=== PATIENT | male | born 1975 | race Caucasian/White ===

== ENCOUNTER 2016-07-26 09:44 | Emergency (ER) | payer OTHER ==
--- NOTE | 2016-07-26 11:09 | UC ---
Eye Complaint HPI - HPI Summary HPI Summary: complaint of getting dust in his eye right this morning right eye- flushed eye for approx 30 minutes without relif while waiting to be seen something came out of his eye denies itching, pain and tearing at this time denies vision changes - History of Current Complaint Chief Complaint: UCEye Stated Complaint: FB IN EYE Time Seen by Provider: 07/26/16 11:02 Location of Injury: Conjunctiva Character: Foreign Body Sensation Aggravating Factor(s): Nothing Alleviating Factor(s): Nothing - Allergies/Home Medications Allergies/Adverse Reactions: Allergies Allergy/AdvReac Type Severity Reaction Status Date / Time Cephalexin [From Keflex] AdvReac intense Verified 07/26/16 10:44 nausea PMH/Surg Hx/FS Hx/Imm Hx Previously Healthy: Yes - Surgical History Surgical History: None - Family History Known Family History: Positive: None Negative: Cardiac Disease, Hypertension, Diabetes - Social History Occupation: Employed Full-time Alcohol Use: Rare Substance Use Type: None Smoking Status (MU): Never Smoked Tobacco - Immunization History Most Recent Tetanus Shot: 03/23/16 Review of Systems Constitutional: Negative Skin: Negative Eyes: Other - right eye foregin body sensation ENT: Negative Respiratory: Negative Cardiovascular: Negative Gastrointestinal: Negative Genitourinary: Negative Motor: Negative Neurovascular: Negative Musculoskeletal: Negative Neurological: Negative Psychological: Negative All Other Systems Reviewed And Are Negative: Yes Physical Exam Triage Information Reviewed: Yes Appearance: No Pain Distress, Well-Nourished Vital Signs: Initial Vital Signs Temp 98.5 F 07/26/16 10:40 Pulse 87 07/26/16 10:40 Resp 16 07/26/16 10:40 BP 159/100 07/26/16 10:40 Pulse Ox 99 07/26/16 10:40 Eye Exam: Normal Eyes: Positive: Conjunctiva Clear, Other: - right eye observed with flourisceine - no foregn objects, scratches or abrasions noted ENT: Positive: Normal ENT inspection Neck: Positive: No Lymphadenopathy Respiratory: Positive: Lungs clear, Normal breath sounds, No respiratory distress Cardiovascular: Positive: RRR, No Murmur, Pulses Normal Abdomen Description: Positive: Nontender, Soft Bowel Sounds: Positive: Present Musculoskeletal: Positive: No Edema Neurological: Positive: Alert Psychological Exam: Normal Skin Exam: Normal Eye Complaint Course/Dx - Course Course Of Treatment: exam completed. no foriegn objects scratches or abrasions. no vision abnormalites. will rx for antibiotic drops for use if symptoms of conjunctivitis occur- pt states understanding - Differential Dx/Diagnosis Differential Diagnosis/HQI/PQRI: Foreign Body Provider Diagnoses: foreign body in right eye, eklevated blood pressure Discharge - Discharge Plan Condition: Stable Disposition: HOME Prescriptions: Tobramycin (Ophth) [Tobrex] 0.3 % OP Q4HR #1 yane Patient Education Materials: Eye Foreign Body (ED) Referrals: Greer Ba MD [Primary Care Provider] - Additional Instructions: your blood pressure is elevated please call your primary care provider for followup no foreign object or abrasion seen in your right eye if your eye starts to turn itchy and red start eyedrops as directed Please review your discharge instructions. If your symptoms do not improve please call your primary care provider or return to urgent care.
[2016-07-26] MEDS ORDERED: Fluorescein Sodium TOPICAL* 1 MG TEST ONE (11:14)
[2016-07-26] MEDS ORDERED: BSS OPTH.SOL* BTL ONE (11:14)
[2016-07-26] MEDS ORDERED: Proparacaine 0.5% OPHTH.SOL* 15 ML BTL ONE (11:14)
[2016-07-26 11:58] VITALS: BP 173/110
== END 2016-07-26 11:40 | disposition home or self-care (01) ==
LOC: UCEAST 09:44
DX: T15.91XA Foreign body on external eye, part unspecified, right eye, initial encounter (principal); I10 Essential (primary) hypertension; Z88.1 Allergy status to other antibiotic agents; X58.XXXA Exposure to other specified factors, initial encounter
CPT/HCPCS: 99212; A9270-GY; G0463

== ENCOUNTER 2018-10-12 13:33 | Emergency (ER) | payer OTHER ==
--- OUTSIDE RECORDS SUMMARY | 2018-10-12 14:15 | XMS REPORT | Continuity of Care Document ---
:1975 External Reference #:[id number] Author Name Greer Ba M.D. 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 [place] [address] PayID: [id number] Advance Directives Description No Information Available Problems Date Description Provider Status Onset: 07/26/2017 Other idiopathic peripheral Greer Ba M.D. Active autonomic neuropathy Onset: 07/26/2017 Essential hypertension Greer Ba M.D. Active Onset: 05/04/2012 Mixed hyperlipidemia Greer Ba M.D. Active Family History Date Family Member(s) Observation Comments General MGF- [place] mid 40's. smoker.M uncle - bypass surgery x2.no Strokes.MGM - lung CA, heavy smoker.PGF - prostate CANo colon or breast ca. Father HTN. HIgh cholesterol. Mother healthy. philip knee replacements. Number of Children 2 step children. Fraternal girl Twins. both healthy. First Daughter healthy. Number of Siblings 1 older sister, 1 younger sister, 1 younger brother. healthy. Social History Type Date Description Comments Sex Unknown Education Highest level of education completed is a bachelor's degree, [employer]. Marital Status Patient is Living Situation Lives with spouse and 3 kids, 12 and 12 - two girls fraternal twins- step daughters. 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 Tobacco Use Start: Unknown Never Smoked Cigarettes ETOH Use Rare -3 glasses a year. Tobacco Use Start: Unknown Patient has never smoked Smoking Status Reviewed: 07/26/17 Patient has never smoked Exercise Type/Frequency Exercises regularly, Current walking - nightly 1 hour, and hiking. during warmer weather. Seat Belt/Car Seat Always uses a seat belt Contraceptive Methods Past methods of control used include vasectomy Allergies, Adverse Reactions, Alerts Date Description Reaction Status Severity Comments 01/05/2010 Keflex Active 01/05/2010 Black Fly/Horse Fly allergic reaction Active Medications Medication Date Status Form Strength Qnty SIG Indications Ordering Provider Hydrochlorothiazi 11/01 Active Tablets 25mg 90tab 1 by I10 Alexandra s mouth [place], every day Afnp-C Lisinopril 09/20 Active Tablets 20mg 30tab 1 by I10 Greer LMadi s mouth Jesenia, every day M.D. Blood Pressure 08/30 Active 1unit take Sarah Luzmaria Cuff s blood Garvin, DRY ROASTER pressure as needed Alprazolam 05/10 Active Tablets 0.25mg 20tab 1 by F41.0 Greer L. s mouth Jesenia, twice a M.D. day as needed Multivitamins Active Chewtabs 1 po qd Unknown Vitamin C Active Capsules 500mg 1 po qd Lisinopril 07/26 Hx Tablets 10mg 30tab 1 by I10 Greer L. s mouth Jesenia, - every day M.D. 09/20 Doxycycline 03/01 Hx Capsules 100mg 28cap one tab R21 Sarah Luzmaria Hyclate s twice a Garvin, DRY ROASTER - day for 07/26 Lisinopril 12/20 Hx Tablets 5mg 30tab 1 by I10 Greer L. s mouth Jesenia, - every day M.D. 07/26 Clindamycin HCL 11/26 Hx Capsules 300mg 42cap 1 po tid 034.0 Susan /2014 s x 14 days Goldy, - BATCH OPERATOR 04/22 Clindamycin HCL 10/23 Hx Capsules 300mg 30cap 1 po tid 034.0 s x 10 days DWAYNE Lewis - 11/22 Amoxicillin 10/10 Hx Tablets 875mg 20tab 1 po bid 034.0 s x 10 Joshua, DRY ROASTER - days 10/20 Physical Therapy 05/04 Hx evaluate 356.8 Greer L. /2011 and treat Bee Ba M.D. 07/12 toe numbness Zithromax Z-Bj 03/03 Hx Tablets 250mg 1Pack as Jaleel J. /2005 directed Bee Rebolledo M.D. 03/23 Keflex 02/28 Hx Tablets 500 14tab one po Loly R s bid seven Maverick, - days. BATCH OPERATOR-C 03/23 Cortisporin Otic 02/28 Hx Suspension 5mg;05897 15ml tweo Loly U;10mg/ML drops Maverick, - left ear BATCH OPERATOR-C 03/23 tid daily /2005 one week as directed Clarinex 02/11 Hx Tablets 5mg 30tab 1 PO qd [facility] 11/18 Of Elidel 02/11 Hx Cream 1% 15gm apply sparingly Silvia, - bid prn BATCH OPERATOR 02/28 Keflex 05/05 Hx 500 14uni 1 bid Jaleel J. /2002 Bee De La Cruz M.D. 05/12 Clarinex 01/14 Hx 5mg 30uni 1 qd prn venkat Vega - BATCH OPERATOR 02/11 Claritin 11/09 Hx 10mg 30uni 1 qd Miya /2000 venkat Vega - BATCH OPERATOR 01/14 Probiotic Daily 00 Hx 1 by Unknown /0000 mouth - every day 09/20 Immunizations CPT Code Status Date Vaccine Lot # [id number] Given 07/26/2017 Influenza vac quadrivalent preservative free 3yrs [id number] and up [id number] Given 06/01/2016 Influenza Vac, Quadrivalent, Slit Virus, Im [id number] Given 04/22/2015 Tdap Tetanus, W Pertussis [id number] Given 07/03/2013 DO Not Use Split Influenza Virus Vaccine Vital Signs Date Vital Result Comment 09/19/2018 2:15pm BP Systolic 144 mmHg BP Diastolic 90 mmHg Heart Rate 72 /min Body Temperature 97.1 F Respiratory Rate 18 /min Height 75 inches 6'3" Weight 201.00 lb BMI (Body Mass Index) 25.1 kg/m2 11/01/2017 2:54pm BP Systolic 174 mmHg Ra BP Diastolic 110 mmHg Ra BP Systolic Recheck 162 mmHg LA BP Diastolic Recheck 108 mmHg LA Heart Rate 64 /min Body Temperature 97.6 F Respiratory Rate 16 /min Height 75 inches 6'3" Weight 203.38 lb BMI (Body Mass Index) 25.4 kg/m2 09/20/2017 2:51pm BP Systolic 154 mmHg BP Diastolic 94 mmHg Heart Rate 60 /min Body Temperature 97.9 F Respiratory Rate 16 /min Height 75 inches 6'3" Weight 200.25 lb BMI (Body Mass Index) 25.0 kg/m2 07/26/2017 9:08am BP Systolic 146 mmHg BP Diastolic 90 mmHg Heart Rate 62 /min Body Temperature 98.2 F Respiratory Rate 16 /min Height 75 inches 6'3" Weight 199.56 lb BMI (Body Mass Index) 24.9 kg/m2 Right Visual Acuity Distance 20/25 Left Visual Acuity Distance 20/20 03/01/2017 10:04am BP Systolic 150 mmHg BP Diastolic 98 mmHg Heart Rate 76 /min Body Temperature 97.9 F Height 75 inches 6'3" Weight 199.00 lb BMI (Body Mass Index) 24.9 kg/m2 Right Visual Acuity Distance 20/20 Left Visual Acuity Distance 20/25 02/01/2017 11:41am BP Systolic 130 mmHg BP Diastolic 80 mmHg Heart Rate 60 /min Body Temperature 97.9 F Respiratory Rate 18 /min Height 75 inches 6'3" Weight 202.00 lb BMI (Body Mass Index) 25.2 kg/m2 12/20/2016 11:34am BP Systolic 150 mmHg BP Diastolic 100 mmHg Heart Rate 72 /min Body Temperature 97.8 F Respiratory Rate 18 /min Height 75 inches 6'3" Weight 205.00 lb BMI (Body Mass Index) 25.6 kg/m2 10/26/2016 8:54am BP Systolic 130 mmHg BP Diastolic 90 mmHg Heart Rate 80 /min Body Temperature 98.2 F Respiratory Rate 18 /min Height 75 inches 6'3" Weight 219.00 lb BMI (Body Mass Index) 27.4 kg/m2 07/20/2016 8:57am BP Systolic 144 mmHg BP Diastolic 92 mmHg Heart Rate 64 /min Body Temperature 97.0 F Height 75 inches 6'3" Weight 215.00 lb BMI (Body Mass Index) 26.9 kg/m2 06/01/2016 2:54pm BP Systolic 156 mmHg BP Diastolic 88 mmHg Heart Rate 66 /min Body Temperature 98.4 F Respiratory Rate 16 /min Weight 214.38 lb 05/10/2016 8:56am BP Systolic 110 mmHg BP Diastolic 80 mmHg Heart Rate 76 /min Body Temperature 98.0 F Respiratory Rate 18 /min Weight 212.00 lb 02/24/2016 1:49pm BP Systolic 134 mmHg BP Diastolic 80 mmHg Heart Rate 80 /min Body Temperature 98.1 F Respiratory Rate 16 /min Height 75.5 inches 6'3.50" Weight 207.00 lb BMI (Body Mass Index) 25.5 kg/m2 04/22/2015 1:47pm BP Systolic 122 mmHg BP Diastolic 70 mmHg Heart Rate 80 /min Body Temperature 97.9 F Respiratory Rate 16 /min Height 75.5 inches 6'3.50" Weight 210.00 lb BMI (Body Mass Index) 25.9 kg/m2 11/26/2013 12:55pm BP Systolic 134 mmHg BP Diastolic 90 mmHg Heart Rate 66 /min Body Temperature 97.4 F Respiratory Rate 16 /min Height 75.5 inches 6'3.50" Weight 207.00 lb BMI (Body Mass Index) 25.5 kg/m2 10/23/2013 9:28am BP Systolic 120 mmHg BP Diastolic 70 mmHg Heart Rate 68 /min Body Temperature 98.2 F Respiratory Rate 14 /min Height 75.5 inches 6'3.50" Weight 205.00 lb BMI (Body Mass Index) 25.3 kg/m2 10/10/2013 9:51am BP Systolic 120 mmHg BP Diastolic 82 mmHg Heart Rate 96 /min Body Temperature 99.6 F Respiratory Rate 20 /min Height 75.5 inches 6'3.50" Weight 206.50 lb BMI (Body Mass Index) 25.5 kg/m2 09/05/2013 11:07am BP Systolic 124 mmHg BP Diastolic 78 mmHg Heart Rate 80 /min Body Temperature 97.1 F Respiratory Rate 16 /min Height 75.5 inches 6'3.50" Weight 208.00 lb BMI (Body Mass Index) 25.7 kg/m2 07/12/2013 1:54pm BP Systolic 122 mmHg BP Diastolic 80 mmHg Heart Rate 76 /min Body Temperature 97.8 F Height 75.5 inches 6'3.50" Weight 208.38 lb BMI (Body Mass Index) 25.7 kg/m2 Right Visual Acuity Distance 20/25 Left Visual Acuity Distance 20/100 05/04/2012 1:50pm BP Systolic 140 mmHg BP Diastolic 100 mmHg Heart Rate 72 /min Body Temperature 98.4 F Height 75.6 inches 6'3.60" Weight 209.00 lb BMI (Body Mass Index) 25.7 kg/m2 04/13/2012 3:30pm BP Systolic 116 mmHg BP Diastolic 80 mmHg Heart Rate 84 /min Body Temperature 98.4 F Height 75.6 inches 6'3.60" Weight 209.00 lb BMI (Body Mass Index) 25.7 kg/m2 03/05/2012 10:52am BP Systolic 122 mmHg BP Diastolic 82 mmHg Heart Rate 68 /min Body Temperature 97.3 F Height 75.6 inches 6'3.60" Weight 205.00 lb BMI (Body Mass Index) 25.2 kg/m2 01/05/2010 1:11pm BP Systolic 120 mmHg BP Diastolic 76 mmHg Heart Rate 72 /min Height 75.6 inches 6'3.60" Weight 193.00 lb BMI (Body Mass Index) 23.7 kg/m2 11/18/2009 3:20pm BP Systolic 120 mmHg BP Diastolic 80 mmHg Heart Rate 76 /min Height 75.6 inches 6'3.60" Weight 195.00 lb BMI (Body Mass Index) 24.0 kg/m2 10/18/2006 11:36am BP Systolic 100 mmHg BP Diastolic 60 mmHg Body Temperature 97.9 F Height 75.6 inches 6'3.60" Weight 174.00 lb BMI (Body Mass Index) 21.4 kg/m2 07/12/2006 7:44pm BP Systolic 126 mmHg BP Diastolic 82 mmHg Heart Rate 74 /min Body Temperature 99.6 F Respiratory Rate 15 /min Height 75.6 inches 6'3.60" 03/23/2006 9:41am BP Systolic 110 mmHg BP Diastolic 60 mmHg Body Temperature 97.9 F Height 75.6 inches 6'3.60" Weight 174.00 lb BMI (Body Mass Index) 21.4 kg/m2 02/28/2006 1:36pm BP Systolic 110 mmHg BP Diastolic 66 mmHg Heart Rate 66 /min Body Temperature 98.6 F Weight 173.00 lb 02/11/2005 4:01pm BP Systolic 110 mmHg BP Diastolic 80 mmHg Body Temperature 98.0 F Weight 178.00 lb 05/05/2003 11:10am Body Temperature 96.0 F 11/09/2000 9:04am BP Systolic 110 mmHg BP Diastolic 72 mmHg Body Temperature 97.2 F Weight 169.00 lb Results Test Date Facility Test Result H/L Range Note Laboratory test [facility] PSA Diagnostic 0.747 ng/mL 0-4.0 1 finding 8 Laboratory test [facility] Hemoglobin A1c 5.2 % 4.1-5.7 finding 8 (607)- - ([facility]) Laboratory test Hong Sabrina (a) TSH 1.71 mIU/L 0.50-6.00 finding 8 Comprehensive Hong Sabrina ([facility]) Sodium 139 mEq/L 134-149 Metabolic Prof 7 Potassium 4.0 mEq/L 3.6-5.5 Chloride 106 mEq/L 94-112 Carbon Dioxide 28 mEq/L 21-32 Glucose 104 mg/dL 70-105 BUN 14 mg/dL 6-26 Creatinine 1.0 mg/dL 0.6-1.4 BUN/Creat Ratio 14.0 CALC 8.0-36.0 Calcium 9.3 mg/dL 8.6-10.2 Total Protein 6.6 g/dL 6.4-8.3 Albumin 4.1 g/dL 3.8-5.5 Globulin 2.5 g/dL 2.0-4.8 A/G Ratio 1.6 CALC 0.6-2.3 Alk. Phosphatase 62 U/L 22-95 Alt (SGPT) 31 U/L 7-35 Ast (Sgot) 36 U/L High 5-34 2 Total Bilirubin 0.5 mg/dL 0.2-1.3 GFR Non- >60 ml/min/1.73m^ >=60 GFR >60 ml/min/1.73m^ >=60 Lipid Profile 07/14/2017 Hong Sabrina ([facility]) Cholesterol 201 mg/dL High 120-200 Triglycerides 107 mg/dL 30-200 HDL Cholesterol 46 mg/dL 30-70 LDL (Calculated) 134 CALC High 0-129 VLDL Cholesterol 21 mg/dL 0-50 HDL Risk Factor 4.4 CALC 0.0-4.4 Complete Blood Count 07/14/2017 Pitts Flora ([facility]) WBC 6.1 x10^3/UL 3.6-9.6 RBC 4.63 x10^6/UL 3.90-5.70 HGB 14.1 g/dL 12.1-17.2 HCT 42 % 36-50 MCV 90.0 fL 82.2-97.4 MCH 30.4 pg 27.6-33.3 MCHC 33.6 g/dL 33.0-35.5 RDW 14.0 % High 11.6-13.7 PLT 239 x10^3/UL 150-400 MPV 7.7 fL 7.4-10.4 Gran # 4.0 x10^3/UL 1.5-7.2 Lymph# 1.8 x10^3/UL 0.7-4.9 [place]# 0.3 x10^3/UL 0.1-0.9 Gran % 63.3 % 42.2-75.2 Lymph % 31.2 % 20.5-51.1 [place]% 5.5 % 1.7-9.3 Laboratory test finding 06/01/[address] [facility] Lyme Disease Serology Positive Negative 3 Lyme Western Blot 06/01/[address] [facility] Lyme Disease IgG Ab WB Negative Negative Lyme Disease IgG Bands Present p93, p58, kDa Lyme Disease IgM Ab WB Negative Negative Lyme Disease IgM Bands Present p41, kDa Lyme Disease Interpretation See Comment 4 Basic Metabolic Profile 01/03/2017 Hong Sabrina ([facility]) Sodium 137 mEq/L 134-149 Potassium 3.8 mEq/L 3.6-5.5 Chloride 98 mEq/L 94-112 Carbon Dioxide 31 mEq/L 21-32 Glucose 92 mg/dL 70-105 BUN 12 mg/dL 6-26 Creatinine 0.9 mg/dL 0.6-1.4 BUN/Creat Ratio 13.3 CALC 8.0-36.0 Calcium 9.5 mg/dL 8.6-10.2 GFR Non- >60 ml/min/1.73m^ >=60 GFR >60 ml/min/1.73m^ >=60 Lyme Western Blot 12/05/[address] [facility] Lyme Disease IgG Ab WB Negative N Negative Lyme Disease IgG Bands Present p93, kDa N Lyme Disease IgM Ab WB Negative N Negative Lyme Disease IgM Bands Present No bands detecte <SEE NOTE> kDa N 5 Lyme Disease Interpretation See Comment N 6 Connective Tissue Panel 12/05/2016 [facility] Anti-Nuclear Antibody 0.4 U N 7 Cyclic Citrullinated Peptide 16.9 U N 8 Interpretation See Comment N 9 Laboratory test finding 12/05/[address] [facility] Lyme Disease Serology Positive N Negative 10 Protein Electrophoresis 12/05/[address] [facility] Total Protein(Pep) 7.3 g/dL N 6.3 - 7.9 Albumin 3.7 g/dL N 3.4-4.7 Alpha-1 Globulin 0.2 g/dL N 0.1-0.3 Alpha-2 Globulin 0.9 g/dL N 0.6-1.0 Beta Globulin 1.4 g/dL Abnormal 0.7-1.2 Gamma Globulin 1.1 g/dL N 0.6-1.6 Albumin/Globulin Ratio 1.01 N Impression See Comment N 11 Laboratory test finding 12/05/[address] [facility] C Reactive Protein 4.27 mg/L N < 5.00 12 Anti Ssa/Ro <0.2 U N 13 Anti SSB LA <0.2 U N 14 Lipid Profile 10/17/2016 Hong Bennett ([facility]) Cholesterol 288 mg/dL High 120-200 Triglycerides 445 mg/dL High 30-200 HDL Cholesterol 45 mg/dL 30-70 LDL (Calculated) 154 CALC High 0-129 VLDL Cholesterol 89 mg/dL High 0-50 HDL Risk Factor 6.4 CALC High 0.0-4.4 Laboratory test 10/17/2016 Hong Bennett ([facility]) Vitamin B-12 429 pg/mL 230-1050 finding Glucose, Serum 115 mg/dL High 70-105 15 LDL, Direct 144 mg/dL High 0-130 Comprehensive Metabolic 07/19/2016 Hong Bennett (a) Sodium 144 mEq/L 134-149 Prof Potassium 4.5 mEq/L 3.6-5.5 Chloride 103 mEq/L 94-112 Carbon Dioxide 25 mEq/L 21-32 Glucose 103 mg/dL 70-105 BUN 9 mg/dL 6-26 Creatinine 0.9 mg/dL 0.6-1.4 BUN/Creat Ratio 10.0 CALC 8.0-36.0 Calcium 10.2 mg/dL 8.6-10.2 Total Protein 7.3 g/dL 6.4-8.3 Albumin 4.5 g/dL 3.8-5.5 Globulin 2.8 g/dL 2.0-4.8 A/G Ratio 1.6 CALC 0.6-2.3 Alk. Phosphatase 68 U/L 22-95 Alt (SGPT) 28 U/L 7-35 Ast (Sgot) 32 U/L 5-34 Total Bilirubin 0.5 mg/dL 0.2-1.3 GFR Non- >60 ml/min/1.73m^ >=60 GFR >60 ml/min/1.73m^ >=60 Lipid Profile 07/19/2016 Hong Bennett ([facility]) Cholesterol 290 mg/dL High 120-200 Triglycerides 527 mg/dL High 30-200 HDL Cholesterol 46 mg/dL 30-70 LDL (Calculated) 139 CALC High 0-129 16 VLDL Cholesterol 105 mg/dL High 0-50 HDL Risk Factor 6.3 CALC High 0.0-4.4 Complete Blood Count 07/19/2016 Hong Bennett ([facility]) WBC 6.5 x10^3/UL 3.6-9.6 RBC 4.86 x10^6/UL 3.90-5.70 HGB 14.9 g/dL 12.1-17.2 HCT 44 % 36-50 MCV 91.0 fL 82.2-97.4 MCH 30.7 pg 27.6-33.3 MCHC 33.8 g/dL 33.0-35.5 RDW 13.7 % 11.6-13.7 PLT 279 x10^3/UL 150-400 MPV 6.7 fL Low 7.4-10.4 Gran # 3.3 x10^3/UL 1.5-7.2 Lymph# 2.7 x10^3/UL 0.7-4.9 [place]# 0.5 x10^3/UL 0.1-0.9 Gran % 49.8 % 42.2-75.2 Lymph % 41.4 % 20.5-51.1 [place]% 8.8 % 1.7-9.3 Laboratory test 07/19/2016 Hong Bennett (a) LDL, Direct 171 mg/dL High 0-130 finding Comprehensive 06/01/2016 [facility] Sabrina (a) Sodium 141 mEq/L 134-149 Metabolic Prof Potassium 4.2 mEq/L 3.6-5.5 Chloride 99 mEq/L 94-112 Carbon Dioxide 25 mEq/L 21-32 Glucose 88 mg/dL 70-105 BUN 11 mg/dL 6-26 Creatinine 0.8 mg/dL 0.6-1.4 BUN/Creat Ratio 13.8 CALC 8.0-36.0 Calcium 9.5 mg/dL 8.6-10.2 Total Protein 7.4 g/dL 6.4-8.3 Albumin 4.3 g/dL 3.8-5.5 Globulin 3.1 g/dL 2.0-4.8 A/G Ratio 1.4 CALC 0.6-2.3 Alk. Phosphatase 73 U/L 22-95 Alt (SGPT) 26 U/L 7-35 Ast (Sgot) 30 U/L 5-34 Total Bilirubin 0.3 mg/dL 0.2-1.3 GFR Non- >60 ml/min/1.73m^ >=60 GFR >60 ml/min/1.73m^ >=60 Laboratory test 06/01/2016 Hong Bennett (a) TSH 4.04 mIU/L 0.50- 6.00 finding Laboratory test 06/01/2016 [facility] Sabrina (a) Vitamin B-12 230 pg/mL 230-1050 finding Folate Level >20.00 ng/mL High 3.00-16.00 Complete Blood Count 06/01/2016 Hong Sabrina (a) WBC 8.1 x10^3/UL 3.6-9.6 RBC 5.06 x10^6/UL 3.90-5.70 HGB 15.2 g/dL 12.1-17.2 HCT 46 % 36-50 MCV 91.0 fL 82.2-97.4 MCH 30.1 pg 27.6-33.3 MCHC 33.0 g/dL 33.0-35.5 RDW 14.3 % High 11.6-13.7 PLT 266 x10^3/UL 150-400 MPV 6.7 fL Low 7.4-10.4 Gran # 4.0 x10^3/UL 1.5-7.2 Lymph# 3.6 x10^3/UL 0.7-4.9 [place]# 0.5 x10^3/UL 0.1-0.9 Gran % 49.2 % 42.2-75.2 Lymph % 44.5 % 20.5-51.1 [place]% 6.2 % 1.7-9.3 Laboratory test 05/08/[address] [facility] PSA Screening 0.759 ng/mL N 0-4.0 17 finding Laboratory test 10/23/2013 [facility] Quickstrep POS # Negative finding (607)- - Laboratory test 10/10/2013 [facility] Quickstrep POS # Negative finding (607)- - CBC Electronic 07/03/2013 [facility] WBC 6.3 3.6-9.6 (a) (607)- - RBC 5.12 3.90-5.70 Hemoglobin (Fma/CMC/CTX) 15.4 g/dL 12.1 - 17.2 Hematocrit (a/CMC/CTX) 47.0 % 36.1 - 50.3 Platelets 263 10^3/ul 150-400 Lymph% 38.8 20.5-51.1 Mixed% 8.1 Neutrophils % 53.6 Mean Corpuscular Vol 92 82.2-97.4 Mean Corpuscular Hemoglobin 30.1 27.6-33.3 Mean Corpuscular Hemo Concen 32.7 32.0-36.0 RDW 12.6 11.6-13.7 Mean Platelet Volume 6.7 6.5-11.0 Laboratory test 07/03/2013 [facility]rina (a) LDL (Direct) 141 mg/dL High 0-130 finding Lipid Profile 07/03/2013 Hong Sabrina (a) Cholesterol 245 mg/dL High 120-200 HDL 37 mg/dL 30-70 Triglycerides 312 mg/dL High 30-200 HDL Risk Factor 6.7 CALC High 0.0-4.4 LDL (Calculated) 146 CALC High 0-129 VLDL (Calculated) 62 mg/dL High 0-50 Comprehensive Metabolic 07/03/2013 Hong Bennett ([facility]) Albumin 4.5 g/dL 3.8-5.5 Prof Alk. Phos. 76 U/L 22-95 Alt (SGPT) 24 U/L 10-40 Ast (Sgot) 30 U/L 5-34 BUN 14 mg/dL 6-26 Calcium 9.6 mg/dL 8.6-10.2 Chloride 97 mEq/L 94-112 Creatinine 0.9 mg/dL 0.6-1.4 Carbon Dioxide 27 mEq/L 21-32 Glucose 100 mg/dL 70-105 Sodium 137 mEq/L 134-149 Total Bilirubin 0.5 mg/dL 0.2-1.3 Total Protein 7.4 g/dL 6.3-8.1 Potassium 4.4 mEq/L 3.6-5.5 Globulin 2.9 g/dL 2.0-4.8 A/G Ratio 1.6 Calc 0.6-2.3 BUN/Creat Ratio 14.4 Calc 8.0-36.0 Laboratory test finding 04/19/2012 [facility]rina ([facility]) B12 285 pg/mL 230-1050 18 Folate >22.00 ng/mL High 3.00-16.00 Laboratory test 04/19/2012 [facility] Hemoglobin A1c 5.8 % High 4.1- 5.7 finding (607)- - (Fma/CMC,CX) CBC Electronic 04/19/2012 [facility] WBC 7.4 3.6-9.6 (Fma) (607)- - RBC 5.38 3.90-5.70 Hemoglobin (Fma/CMC/CTX) 16.1 g/dL 12.1 - 17.2 Hematocrit (Fma/CMC/CTX) 50.0 % 36.1 - 50.3 Platelets 277 10^3/ul 150-400 Lymph% 38.3 20.5-51.1 Mixed% 7.4 Neutrophils % 54.3 Mean Corpuscular Vol 93 82.2-97.4 Mean Corpuscular Hemoglobin 29.9 27.6-33.3 Mean Corpuscular Hemo Concen 32.2 32.0-36.0 RDW 12.4 11.6-13.7 Mean Platelet Volume 6.9 6.5-11.0 Comprehensive 04/19/2012 [facility] Glucose 101 mg/dL High 70-100 19 Metabolic [address] [place] [id number] [phone] BUN 12 mg/dL 5-21 Creatinine, Serum 0.91 mg/dL 0.60-1.30 Sodium 143 mmol/L 136-146 Potassium 5.0 mmol/L 3.5-5.3 Chloride 104 mmol/L 98-110 Carbon Dioxide 31 mmol/L 20-32 Albumin 4.6 g/dL 3.5-4.7 Protein, Total 7.7 g/dL 6.4-8.3 Calcium 10.5 mg/dL High 8.4-10.4 Alkaline Phosphatase 97 U/L 10-118 Sgot (Ast) 30 U/L 3-40 SGPT (Alt) 26 U/L 7-50 Bilirubin, Total 0.60 mg/dL 0.30-1.20 Lipid Panel 04/19/2012 [facility] Cholesterol, 258 mg/dL Abnormal <200 [address] [place], [place] [id number] [phone] Triglycerides 256 mg/dL Abnormal <150 HDL Cholesterol 46 mg/dL 40-60 Chol/HDL Cholesterol 5.6 Abnormal 20 LDL Cholesterol, Calc. 161 mg/dL Abnormal 21 LDL/HDL Cholesterol 3.5 22 Egfr (Calculated) 04/19/2012 [facility] Estimated GFR (CALCULATED) [address] [place] [address] [phone] Egfr >60 23 Egfr, -Martiniquais >60 24 Comprehensive Metabolic 12/17/2009 [facility] Sabrina ([facility]) Albumin 4.8 g/dL 3.8-5.5 Prof Alk. Phos. 64 U/L 22-95 Alt (SGPT) 20 U/L 10-40 Ast (Sgot) 27 U/L 5-34 BUN 12 mg/dL 6-26 Calcium 9.9 mg/dL 8.6-10.2 Chloride 99 mEq/L 94-112 Creatinine 0.9 mg/dL 0.6-1.4 Carbon Dioxide 24 mEq/L 21-32 Glucose 100 mg/dL 70-105 Sodium 140 mEq/L 134-149 Total Bilirubin 0.4 mg/dL 0.2-1.3 Total Protein 7.5 g/dL 6.3-8.1 Potassium 4.2 mEq/L 3.6-5.5 Globulin 2.7 g/dL 2.0-4.8 A/G Ratio 1.8 Calc 0.6-2.2 BUN/Creat Ratio 14.1 Calc 8.0-36.0 Lipid Profile 12/17/2009 [facility]rina ([facility]) Cholesterol 278 mg/dL High 120-200 HDL 46 mg/dL 30-70 Triglycerides 330 mg/dL High 30-200 HDL Risk Factor 6.1 CALC 4.2-7.0 LDL (Calculated) 166 CALC High 0-129 25 VLDL (Calculated) 66 mg/dL High 0-50 Laboratory test 12/17/2009 [facility] Sabrina ([facility]) LDL (Direct) 154 mg/dL High 0-130 finding Laboratory test 12/17/2009 [facility] Vitamin D, 25 21.4 ng/mL Low 32.0- 100.0 26 finding [address] [place] [address] [phone] Laboratory test 07/12/2006 [facility] Throat - Beta NEG @ 48 finding (309)- - Strep [facility] HOURS Laboratory test 03/30/2006 [facility] STOOL See Image finding CULT;O&P;GI Report AR 1 Serum levels of PSA measured using the Gustavo NexMed DXI Hybritech immunoassay should not be interpreted as absolute evidence of the presence or absence of disease. The PSA value should be used in conjunction with other pertinent clinical diagnostic procedures. The values obtained with different assay methods or kits cannot be used interchangeably. 2 RESULTS VERIFIED BY REPEAT ANALYSIS 3 Not diagnostic. Supplemental testing ordered by reflex. Test Performed by: [facility] [employer] [facility] [place] [address] 4 Specific serologic response to B. burgdorferi infection is not detected, but cannot rule out early infection during which low or undetectable antibody levels to B. burgdorferi may be present. If clinically indicated, a new serum specimen should be submitted in 7-14 days. ADDITIONAL INFORMATION CDC criteria require >=5 bands for IgG or >=2 bands for IgM for the Immunoblot to be considered positive. Bands (e.g.,p41) may be detected in patients without Lyme disease, and patterns not meeting the CDC criteria should be interpreted with caution. Immunoblot should be ordered only on specimens that are positive or equivocal by a FDA-licensed Lyme disease antibody screening test (e.g., EIA). Test Performed by: [facility] [address] [place] [id number] 5 No bands detected 6 Specific serologic response to B. burgdorferi infection is not detected, but cannot rule out early infection during which low or undetectable antibody levels to B. burgdorferi may be present. If clinically indicated, a new serum specimen should be submitted in 7-14 days. ADDITIONAL INFORMATION CDC criteria require >=5 bands for IgG or >=2 bands for IgM for the Immunoblot to be considered positive. Bands (e.g.,p41) may be detected in patients without Lyme disease, and patterns not meeting the CDC criteria should be interpreted with caution. Immunoblot should be ordered only on specimens that are positive or equivocal by a FDA-licensed Lyme disease antibody screening test (e.g., EIA). Test Performed by: [facility] [place] [address] 7 REFERENCE VALUE <=1.0 (Negative) 8 REFERENCE VALUE <20.0 (Negative) 9 Tests for antibodies to dsDNA and ROBBY antigens are not performed automatically unless the APOLONIA result is > or= 3.0 U. Studies performed at [facility] indicate that positive APOLONIA results <3.0 U are rarely accompanied by positive second order tests. Test Performed by: [place] [address] 10 Not diagnostic. Supplemental testing ordered by reflex. Test Performed by: [place] [id number] 11 RESULT: No apparent monoclonal protein on serum electrophoresis. Test Performed by: [place] [address] 12 Acute inflammation: >10.00 13 REFERENCE VALUE <1.0 (Negative) Test Performed by: [address] [id number] 14 REFERENCE VALUE <1.0 (Negative) Test Performed by: [address] [id number] 15 FASTING spring 2016. 16 invalid 17 Serum levels of PSA measured using the Gustavo Josephine DXI Hybritech immunoassay should not be interpreted as absolute evidence of the presence or absence of disease. The PSA value should be used in conjunction with other pertinent clinical diagnostic procedures. The values obtained with different assay methods or kits cannot be used interchangeably. 18 FASTING 19 FASTING; 1 sst 20 CHOL/HDL Risk Ratio Levels MALE FEMALE 1/2 X Average 3.4 3.3 Average 5.0 4.4 2 X Average 9.5 7.0 3 X Average 24.0 11.0 21 Optimal under 100 mg/dl Near or above Optimal 100 - 129 mg/dl Borderline High 130 - 159 mg/dl High 160 - 189 mg/dl Very High above 190 mg/dl 22 LDL/HDL Risk Ratio Levels MALE FEMALE 1/2 X Average 1.0 1.5 Average 3.6 3.2 2 X Average 6.3 5.0 3 X Average 8.0 6.1 23 >59 mL/min/1.73m2 24 >59 mL/min/1.73m2 Note: Persistent reduction for 3 months or more in an eGFR <60 mL/min/1.73m2 defines CKD. Patients with eGFR values >=60 mL/min/1.73m2 may also have CKD if evidence of persistent proteinuria is present. Additional information may be found at www.kidney.org/professionals/kdoqi. 25 INVALID 26 Recent studies consider the lower limit of 32.0 ng/mL to be a threshold for optimal health. Jacob NGUYEN. J Nutr. 2004;135(2):317-22. Procedures Date Code Description Status 09/20/2017 99059 Finger Or Heel Stick Completed 07/26/2017 68890 CPHL SHQ Completed 07/26/2017 20845 Vision Test- screening test of visual acuity, Completed quantitative, bila 11/18/2016 01144 Blood Pressure Monitoring Completed 07/20/2016 54250 CPHL SHQ Completed 07/12/2013 26459 CPHL SHQ Completed 07/12/2013 46881 Vision Test- screening test of visual acuity, Completed quantitative, bila Encounters Type Date Location Provider Dx Diagnosis Office Visit 11/01/2017 Main Office Greer Ba, I10 Essential ( primary) 2:40p M.D. hypertension Office Visit 09/20/2017 Main Office Greer Ba, R73.01 Impaired fasting 2:40p M.D. 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 nonspecific skin eruption Office Visit 02/01/2017 11:00a Main Office Greer Ruiz I10 Essential ( primary) Michel Ba hypertension R73.01 Impaired fasting glucose G90.09 Other idiopathic peripheral autonomic neuropathy Office Visit 12/20/2016 11:20a [facility] Greer Wesley0 Essential Michel Ba (primary) hypertension Office Visit 11/18/2016 10:00a [facility] Greer Ruiz R03.0 Elevated Michel Ba blood-pressure reading, w/o diagnosis of htn Office Visit 10/26/2016 9:00a Main Office Greer Ruiz R03.0 Elevated Michel Ba blood-pressure reading, w/o diagnosis of htn E78.2 Mixed hyperlipidemia R25.2 Cramp and spasm F43.22 Adjustment disorder with anxiety R73.01 Impaired fasting glucose Office Visit 07/20/2016 9:00a Main Office Katrina Arambula00.00 Encntr for MKim general adult medical exam w/o abnormal findings E78.1 Pure hyperglyceridemia G90.09 Other idiopathic peripheral autonomic neuropathy R03.0 Elevated blood-pressure reading, w/o diagnosis of htn R25.2 Cramp and spasm Office Visit 06/01/2016 2:40p Main Office Greer Ruiz G90.09 Other idiopathic Michel Ba peripheral autonomic neuropathy Z23 Encounter for immunization Office Visit 05/10/2016 9:00a Main Office Rosa Mccormick, F41.0 Panic disorder Afnp-C without agoraphobia Office Visit 02/24/2016 1:45p Main Office Windy Lewis NP M79.671 Pain in right foot Office Visit 04/22/2015 1:45p Main Office Alexandra 916.0 Injury Superficial [place], Afnp-C Abrasion Hip Thigh LG Ankle W/O Infection V06.1 Jwurbfewzn-Ajsuryb-Neinwtck Combined (DTaP) v06.5 Tetanus Diphtheria (DT) E917.9 Other Striking Against With Or Without Subsquent Fall Office Visit 11/26/2013 1:00p Main Office Susan 461.1 Sinusitis Acute Goldy, BATCH OPERATOR Frontal Office Visit 10/23/2013 9:30a Main Office Windy Lewis, 034.0 Streptococcal Sore DRY ROASTER Throat Office Visit 10/10/2013 9:45a [facility] Windy Lewis, 034.0 Streptococcal Sore Office DRY ROASTER Throat Office Visit 09/05/2013 11:00a Main Office Rosa Mccormick, 216.8 Benign Neoplasm Afnp-C Skin Other Spec Sites Office Visit 07/12/2013 2:00p [facility] Greer Ruiz V70.0 Examination General Office Michel Ba Medical Routine AT [facility] 272.2 Hyperlipidemia Mixed 355.5 Tarsal Tunnel Syndrome 278.02 Overweight Office Visit 05/04/2012 1:40p [facility] Greer Ruiz 356.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 Spec Idiopathic Peripheral Office Visit 03/05/2012 11:00a Main Office Alexandra 916.4 Injury Superficial [place], Insect Bite Hip Afnp-C Thigh Leg Ankle NV No Inf E906.4 Bite Nonvenomous Arthropod Office Visit 01/05/2010 1:00p Main Office rGeer Ruiz V70.0 Examination General Michel Ba Medical Routine AT [facility] 009.1 Colitis Enteritis & Gastroenteritis Presumed Infectious Orig 272.1 Hypertriglyceridemia Pure 272.2 Hyperlipidemia Mixed 268.9 Vitamin D Deficiency Unspec Office Visit 11/18/2009 3:20p Main Office Greer Ruiz 372.9 Conjunctival Michel Ba Disorder Unspec Office Visit 10/18/2006 11:30a [facility] Rosa Mccormick, E906.4 Bite Nonvenomous Afnp-C Arthropod 916.4 Injury Superficial Insect Bite Hip Thigh Leg Ankle NV No Inf Office Visit 07/12/2006 7:45p Main Office Alexandra 462 Pharyngitis Acute [place], Afnp-C Office Visit 03/23/2006 9:45a [facility] Miya Vega, 787.91 Diarrhea BATCH OPERATOR Office Visit 02/28/2006 1:45p [facility] Loly Temple, 382.9 Otitis Media BATCH OPERATOR-C Unspec 380.10 Otitis Externa Infective Unspec 380.4 Impacted Cerumen Office Visit 02/11/2005 4:00p [facility] Miya Vega, 379.99 Eye Disorder BATCH OPERATOR Other Ill Defined Office Visit 05/05/2003 11:10a [facility] Jaleel Hunt 989.5 Toxic Effect Of Michel eRbolledo Venom 682.4 Cellulitis & Abscess Hand Except Fingers & Thumb Office Visit 11/09/2000 9:15a Main Office THIAGO Mazariegos Plan of Treatment 09/19/2018 - Greer Ba M.D.N50.819 Testicular pain, unspecifiedNew Labs :Urinalysis W/RFL To Micro, Ordered: 09/19/18Comments:I think this is due to a muscle strain from your work or other activity at home. call if symptoms change , get worse, you get worried. I'll refer you to urology. urine is totally clear.AllComments:~B_~U_Medication Management~b_~u_ Patient Understands medications he's taking? Yes No Are there Barriers to Adherence? Yes No Has the patient been asked about herbal supplements and therapies, and OTC meds? Yes No
[2018-10-12 14:16] VITALS: BP 179/111
--- NOTE | 2018-10-16 07:14 | UC ---
Skin Complaint HPI - HPI Summary HPI Summary: 43 y/o male with cc of splinter of left thumb x 3 days c/o pain and swelling of the left thumb due to splinter pain is 2 out of 10 , no radiation , worse with touching the area better with rest, no fever, no chills - History of Current Complaint Chief Complaint: UCSkin Time Seen by Provider: 10/12/18 14:23 Stated Complaint: FB IN THUMB Hx Obtained From: Patient Onset/Duration: Sudden Onset, Lasting Days - 3, Still Present Timing: Constant Onset Severity: Moderate Current Severity: Moderate Pain Intensity: 2 Pain Scale Used: 0-10 Numeric Location: Discrete - left thumb Character: Swelling, Pain, Redness, Raised, Painful Aggravating Factor(s): Touch Alleviating Factor(s): Nothing Associated Signs & Symptoms: Positive: Tenderness. Negative: Nausea, Vomiting, Numbness, Weakness, Drainage Related History: Foreign Body - splinter left thumb - Allergy/Home Medications Allergies/Adverse Reactions: Allergies Allergy/AdvReac Type Severity Reaction Status Date / Time cephalexin [From Keflex] Allergy Nausea Verified 10/12/18 14:16 Home Medications: Home Medications Ascorbic Acid [Vitamin C] 1,000 mg PO DAILY 10/12/18 [History Confirmed 10/12/18 ] Hydrochlorothiazide TAB* [Hydrodiuril TAB*] 25 mg PO DAILY 10/12/18 [History Confirmed 10/12/18] Lisinopril [Zestril] 20 mg PO DAILY 10/12/18 [History Confirmed 10/12/18] PMH/Surg Hx/FS Hx/Imm Hx Cardiovascular History: Hypertension - Surgical History Surgical History: None - Family History Known Family History: Positive: None Negative: Cardiac Disease, Hypertension, Diabetes - Social History Alcohol Use: Rare Substance Use Type: None Smoking Status (MU): Never Smoked Tobacco - Immunization History Most Recent Tetanus Shot: 03/23/16 Review of Systems All Other Systems Reviewed And Are Negative: Yes Constitutional: Positive: Negative Skin: Positive: Negative Eyes: Positive: Negative ENT: Positive: Negative Respiratory: Positive: Negative Is Patient Immunocompromised?: No Physical Exam Triage Information Reviewed: Yes Appearance: Well-Appearing, No Pain Distress, Well-Nourished Vital Signs: Initial Vital Signs Temp 98 F 10/12/18 14:12 Pulse 82 10/12/18 14:12 Resp 18 10/12/18 14:12 BP 179/111 10/12/18 14:12 Pulse Ox 99 10/12/18 14:12 Vital Signs Reviewed: Yes Eye Exam: Normal ENT: Positive: Normal ENT inspection, Hearing grossly normal, Pharynx normal Neck exam: Normal Respiratory: Positive: Chest non-tender, Lungs clear, Normal breath sounds Cardiovascular: Positive: RRR, No Murmur, Pulses Normal Skin: Positive: Other - splinter left thumb , the area is swollen , erythema, tender to touch splinter was removed using a splinter forceps, no anesthesia was used Course/Dx - Diagnoses Provider Diagnosis: Splinter of finger Discharge - Sign-Out/Discharge Documenting (check all that apply): Patient Departure All imaging exams completed and their final reports reviewed: No Studies - Discharge Plan Condition: Stable Disposition: HOME Patient Education Materials: Soft Tissue Foreign Body (ED) Referrals: Greer Ba MD [Primary Care Provider] - If Needed - Billing Disposition and Condition Condition: STABLE Disposition: Home
== END 2018-10-12 14:45 | disposition home or self-care (01) ==
LOC: UCEAST 13:33
DX: S60.352A Superficial foreign body of left thumb, initial encounter (principal); W45.8XXA Other foreign body or object entering through skin, initial encounter; Y92.9 Unspecified place or not applicable; I10 Essential (primary) hypertension; Z88.1 Allergy status to other antibiotic agents
CPT/HCPCS: 99211; G0463